=== PATIENT | male | born 1970 | race Caucasian/White ===

== ENCOUNTER 2022-06-10 09:36 | Emergency (ER) | payer OTHER ==
[2022-06-10] MEDS ORDERED: NAPROSYN500 MG PO (11:45)
[2022-06-10] MEDS ORDERED: CEPHALEXIN500 MG PO (11:45)
[2022-06-10] MEDS ORDERED: BACTRIM DS TAB1 EACH PO (11:45)
== END 2022-06-10 12:04 | disposition home or self-care (01) ==
LOC: ER1 09:36
DX: S81.811A Laceration without foreign body, right lower leg, initial encounter (principal); F17.290 Nicotine dependence, other tobacco product, uncomplicated; W31.89XA Contact with other specified machinery, initial encounter; Y99.0 Civilian activity done for income or pay; Z23 Encounter for immunization
CPT/HCPCS: 12002; 73590; 90471; 90715; 99283; J2270; J2405